=== PATIENT | male | born 2000 | race Caucasian/White ===

== ENCOUNTER 2023-12-22 04:50 | Emergency (ER) | payer OTHER ==
[~2023-12-22] VITALS: Ht 175.3 cm; Wt 104.5 kg
[2023-12-22 04:53] VITALS: TEMP 98.5
[2023-12-22] MEDS ORDERED: ONDANSETRON HCL 4 MG/2 ML VIAL IM ONE (06:00)
[2023-12-22] MEDS ORDERED: HYDROmorphone HCL 2 MG/ML SYRINGE IM ONE (06:00)
[2023-12-22] MEDS ORDERED: IBUP-1492 PO (07:18)
[2023-12-22 07:19] VITALS: BP 135/57; PULSE 76; RESP 16
[2023-12-22] MEDS ORDERED: PERCT PO (07:19)
[2023-12-22] MEDS ORDERED: KETOROLAC TROMETHAMINE 60 MG/2 ML VIAL IM ONE (07:30)
== END 2023-12-22 07:58 | disposition home or self-care (01) ==
LOC: EMS 04:50
DX: S82.841A Displaced bimalleolar fracture of right lower leg, initial encounter for closed fracture (principal); F12.90 Cannabis use, unspecified, uncomplicated; Y08.89XA Assault by other specified means, initial encounter; Y93.89 Activity, other specified; Y92.89 Other specified places as the place of occurrence of the external cause; Y99.8 Other external cause status
CPT/HCPCS: 99284; 29515; 73610; 96372; J1170; J1885; J2405